=== PATIENT | female | born 1950 | race Caucasian/White ===

== ENCOUNTER 2017-03-17 12:15 | Emergency (ER) | payer BC ==
[~2017-03-17] VITALS: Ht 172.7 cm; Wt 61.6 kg
[2017-03-17 12:24] VITALS: TEMP 36.6; Ht 172.7 cm; Wt 61.6 kg
[2017-03-17] MEDS ORDERED: ASPIRIN 324 MG CHEW PO STA (12:39)
[2017-03-17] MEDS ORDERED: PANTOprazole SOD 40 MG TAB PO STA (12:39)
[2017-03-17] MEDS ORDERED: SODIUM CHLORIDE 0.9% 1000ML 1,000 ML IV STA (12:39)
[2017-03-17] MEDS ORDERED: ONDANSETRON INJ 2 MG/ML 2 ML VIAL IV STA (12:39)
[2017-03-17] MEDS ORDERED: ALUMINUM/MAGNESIUM SUSP 30 ML UDC PO STA (12:39)
--- NOTE | 2017-03-17 12:43 | EMERGENCY ROOM VISIT NOTE ---
History Report prepared by Titi: Faisal Wells Under the Supervision of: Dr. Adrien Heller D.O. First contact with patient: 12:31 Chief Complaint: CHEST PAIN Stated Complaint: CHEST PAIN Nursing Triage Summary: pt reports at 0500 this am had pain in abd and chest area has not felt right since . denies any n/v/sob History of Present Illness The patient is a 66 year old female who presents to the Emergency Room with complaints of chest tightness that began 2 hours ago. She rates the severity of her tightness a 6/10. This morning at 0500, she experienced an odd body pain that woke her up from sleep. It then went away, and she went on with her morning as usual. She had a normal bowel movement and began to eat breakfast. After she had her cereal, she felt abnormally full. She notes that she has been experiencing more frequent belching over the past month. She then began to feel a tightness in her chest. It does not radiate to any other location. She denies any fevers, cough, shortness of breath, abdominal pain, nausea, vomiting, leg pain, leg swelling, abnormal urinary symptoms, diarrhea, or melena. She does not take any medications. She still has her gallbladder. She notes that she was exposed to chemicals secondary to her redoing her hardwood floor. Source of History: patient Onset: 2 hours ago Position: chest Symptom Intensity: 6/10 Quality: other (Tightness) Timing: constant Associated Symptoms: No cough, No SOB, No nausea, No vomiting, No melena, No hematochezia, No diarrhea, No urinary symptoms Note: She is having more frequent belching. Review of Systems See HPI for pertinent positives & negatives. A total of 10 systems reviewed and were otherwise negative. Past Medical & Surgical Medical Problems: (1) retinal history Surgical Problems: (1) History of tonsillectomy Family History Omitted secondary to patient's age. Social History Smoking Status: Never Smoker Smokeless Tobacco Use: No Alcohol Use: occasionally Drug Use: none Marital Status: Housing Status: lives alone Occupation Status: retired Current/Historical Medications Scheduled Omeprazole (Prilosec), 20 MG PO DAILY Allergies Coded Allergies: No Known Allergies (Unverified , NONE, 03/17/17) Physical Exam Vital Signs Date Time Temp Pulse Resp B/P (MAP) Pulse Ox O2 Delivery O2 Flow Rate FiO2 8/19/17 16:07 66 16 123/82 99 03/17/17 13:54 64 133/87 99 03/17/17 12:38 73 03/17/17 12:24 36.6 77 18 137/89 99 Room Air Physical Exam GENERAL: Patient is awake, alert, and in no acute distress. Patient is resting comfortably and showing no signs of anxiety EYES: The conjunctivae are clear. The pupils are round and reactive. EARS, NOSE, MOUTH AND THROAT: The nose is without any evidence of any deformity. Mucous membranes are moist tongue is midline NECK: The neck is nontender and supple. RESPIRATORY: Normal respiratory effort is noted there is no evidence of wheezing rhonchi or rales CARDIOVASCULAR: Regular rate and rhythm noted there no murmurs rubs or gallops normal S1 normal S2 GASTROINTESTINAL: The abdomen is soft. Bowel sounds are present in all quadrants. Abdomen is nontender BACK: No midline tenderness or or step-off noted range of motion in flexion extension as well as rotation no signs of muscle spasm noted MUSCULOSKELETAL/EXTREMITIES: There is no evidence of gross deformity full range of motion is noted in the hips and shoulders SKIN: There is no obvious evidence of any rash. There are no petechiae, pallor or cyanosis noted. NEUROLOGIC: Patient is awake alert and oriented x3 strength is symmetric patellar reflexes are 2+ bilaterally Medical Decision & Procedures ER Provider Diagnostic Interpretation: Radiology results as stated below per my review and radiologist interpretation: CHEST ONE VIEW PORTABLE CLINICAL HISTORY: Abdominal pain. COMPARISON STUDY: No previous studies for comparison. FINDINGS: Lung volumes are normal. There is mild elevation of the left hemidiaphragm. Pulmonary vascularity is normal. No consolidation to suggest pneumonia is present. Cardiomediastinal silhouette is normal. There is an equivocal 7 mm left apical nodule. IMPRESSION: 1. No acute cardiopulmonary findings. 2. Equivocal 7 mm left apical nodule. Nonemergent PA, shallow oblique and apical lordotic views of the chest are recommended. 3. Mild elevation of the left hemidiaphragm. Electronically signed by: Artemio Ross M.D. 03/17/2017 1:01 PM Dictated Date/Time: 03/17/2017 12:59 PM Laboratory Results 03/17/17 12:50 Red Blood Count 4.11, Mean Corpuscular Volume 92.2, Mean Corpuscular Hemoglobin 31.4, Mean Corpuscular Hemoglobin Concent 34.0, Mean Platelet Volume 10.9, Neutrophils (%) (Auto) 72.2, Lymphocytes (%) (Auto) 17.7, Monocytes (%) (Auto) 7.6, Eosinophils (%) (Auto) 1.8, Basophils (%) (Auto) 0.5, Neutrophils # (Auto) 4.08, Lymphocytes # (Auto) 1.00, Monocytes # (Auto) 0.43, Eosinophils # (Auto) 0.10, Basophils # (Auto) 0.03 03/17/17 12:50 Test 03/17/17 12:50 03/17/17 13:45 03/17/17 15:06 White Blood Count 5.65 K/uL (4.8-10.8) Red Blood Count 4.11 M/uL (4.2-5.4) Hemoglobin 12.9 g/dL (12.0-16.0) Hematocrit 37.9 % (37-47) Mean Corpuscular Volume 92.2 fL (80-100) Mean Corpuscular Hemoglobin 31.4 pg (25-34) Mean Corpuscular Hemoglobin Concent 34.0 g/dl (32-36) Platelet Count 219 K/uL (130-400) Mean Platelet Volume 10.9 fL (7.4-10.4) Neutrophils (%) (Auto) 72.2 % Lymphocytes (%) (Auto) 17.7 % Monocytes (%) (Auto) 7.6 % Eosinophils (%) (Auto) 1.8 % Basophils (%) (Auto) 0.5 % Neutrophils # (Auto) 4.08 K/uL (1.4-6.5) Lymphocytes # (Auto) 1.00 K/uL (1.2-3.4) Monocytes # (Auto) 0.43 K/uL (0.11-0.59) Eosinophils # (Auto) 0.10 K/uL (0-0.5) Basophils # (Auto) 0.03 K/uL (0-0.2) RDW Standard Deviation 43.9 fL (36.4-46.3) RDW Coefficient of Variation 12.9 % (11.5-14.5) Immature Granulocyte % (Auto) 0.2 % Immature Granulocyte # (Auto) 0.01 K/uL (0.00-0.02) Prothrombin Time 10.7 SECONDS (9.0-12.0) Prothromb Time International Ratio 1.0 (0.9-1.1) Activated Partial Thromboplast Time 27.1 SECONDS (21.0-31.0) Partial Thromboplastin Ratio 1.0 Anion Gap 5.0 mmol/L (3-11) Est Creatinine Clear Calc Drug Dose 78.1 ml/min Estimated GFR () 104.7 Estimated GFR (Non- 90.3 BUN/Creatinine Ratio 23.1 (10-20) Calcium Level 8.5 mg/dl (8.5-10.1) Total Bilirubin 0.3 mg/dl (0.2-1) Direct Bilirubin < 0.1 mg/dl (0-0.2) Aspartate Amino Transf (AST/SGOT) 19 U/L (15-37) Alanine Aminotransferase (ALT/SGPT) 27 U/L (12-78) Alkaline Phosphatase 85 U/L (45-117) Total Creatine Kinase 102 U/L (26-192) Creatine Kinase MB 6.4 ng/ml (0.5-3.6) Creatine Kinase MB Ratio 6.3 (0-3.0) Total Protein 6.9 gm/dl (6.4-8.2) Albumin 3.5 gm/dl (3.4-5.0) Lipase 152 U/L (73-393) Urine Color YELLOW Urine Appearance CLEAR (CLEAR) Urine pH 6.5 (4.5-7.5) Urine Specific [place] 1.011 (1.000-1.030) Urine Protein NEG (NEG) Urine Glucose (UA) NEG (NEG) Urine Ketones NEG (NEG) Urine Occult Blood NEG (NEG) Urine Nitrite NEG (NEG) Urine Bilirubin NEG (NEG) Urine Urobilinogen NEG (NEG) Urine Leukocyte Esterase NEG (NEG) Troponin I < 0.015 ng/ml (0-0.045) Laboratory results per my review. Medications Administered Medications (Trade) Dose Ordered Sig/Nighat Route Start Time Stop Time Status Last Admin Dose Admin Al Hydroxide/Mg Hydroxide (Maalox Susp) 30 ml NOW STAT PO 03/17/17 12:39 03/17/17 12:41 DC 03/17/17 13:00 30 ML Sodium Chloride 1,000 ml @ 999 mls/hr Q1H1M STAT IV 8/19/17 12:39 03/17/17 13:39 DC 03/17/17 13:03 999 MLS/HR Aspirin (Aspirin Chew) 324 mg NOW STAT PO 03/17/17 12:39 03/17/17 12:42 DC 03/17/17 13:00 324 MG Pantoprazole Sodium (Protonix Tab) 40 mg NOW STAT PO 03/17/17 12:39 03/17/17 12:42 DC 03/17/17 12:59 40 MG ECG Indication: chest pain Rate (beats per minute): 75 Rhythm: normal sinus Findings: Q waves (Anterior), no ectopy Comparison ECG Date: 18 Dec 2001 Change: Q waves are new. 2nd ECG in the ER: NSR 62, poor r-wave noted, no ectopy, no acute STS, no change from previous. ED Course 1231: The patient was evaluated in room C7. A complete history and physical examination were performed. 1239: Ordered Protonix Tab 40 mg PO, Aspirin 324 mg PO, Zofran Inj 4 mg IV, NSS 1,000 ml @ 999 mls/hr IV, Maalox Susp 30 ml PO 1455: I informed the patient that we will do a repeat troponin and ECG at 1500. 1630: Upon reevaluation, the patient is resting. I discussed the results and treatment plan with her. She verbalized agreement of the treatment plan. She was discharged home. Medical Decision Differential diagnosis: Etiologies such as cardiac ischemia, aortic dissection, pulmonary embolism, pneumonia, pneumothorax, musculoskeletal, infections, pericarditis, myocarditis , esophageal rupture, gastrointestinal, as well as others were entertained. Nursing notes reviewed. The patient is a 66-year-old female who presented to the emergency department for an evaluation of substernal chest pain and epigastric pain. The patient had no acute EKG changes and her cardiac biomarkers were negative. She also had repeat EKG and repeat cardiac biomarkers. I discussed the patient's laboratory and radiographic studies with her. I also discussed the limitations of the emergency department workup for chest pain with her. She was treated with aspirin as well as Maalox and proton pump inhibitor in the emergency department. On subsequent reevaluation she was feeling much better. She was encouraged to rest and avoid any strenuous activity. She was also encouraged to call her family doctor to schedule a follow-up appointment as well as possible stress testing. She was also encouraged return to the emergency department immediately if symptoms change worsen or the need arises. Medication Reconcilliation Current Medication List: was personally reviewed by me Blood Pressure Screening Patient's blood pressure: Normal blood pressure Blood pressure disposition: Did not require urgent referral Impression Primary Impression: Substernal chest pain Scribe Attestation The scribe's documentation has been prepared under my direction and personally reviewed by me in its entirety. I confirm that the note above accurately reflects all work, treatment, procedures, and medical decision making performed by me. Departure Information Dispostion Home / Self-Care Prescriptions Omeprazole (Prilosec) 20 Mg Capcr 20 MG PO DAILY, #30 CAP Prov: Adrien Heller, DO 03/17/17 Referrals Isaac Noonan PA-C (PCP) Forms Call Back Authorization, HOME CARE DOCUMENTATION FORM, IMPORTANT VISIT INFORMATION Patient Instructions ED Chest Pain Atypical Unkn Cause, My [facility] Additional Instructions Continue all medications as prescribed. Rest and avoid any strenuous activity. Call your family doctor on Sunday schedule a follow-up appointment. You may require further studies to further evaluate the cause of chest pain including a stress test. Consider using Maalox or Mylanta for symptomatically relief.
--- NOTE | 2017-03-17 13:02 | DIAGNOSTIC IMAGING REPORT ---
CHEST ONE VIEW PORTABLE CLINICAL HISTORY: Abdominal pain. COMPARISON STUDY: No previous studies for comparison. FINDINGS: Lung volumes are normal. There is mild elevation of the left hemidiaphragm. Pulmonary vascularity is normal. No consolidation to suggest pneumonia is present. Cardiomediastinal silhouette is normal. There is an equivocal 7 mm left apical nodule. IMPRESSION: 1. No acute cardiopulmonary findings. 2. Equivocal 7 mm left apical nodule. Nonemergent PA, shallow oblique and apical lordotic views of the chest are recommended. 3. Mild elevation of the left hemidiaphragm. Electronically signed by: Artemio Ross M.D. 03/17/2017 1:01 PM Dictated Date/Time: 03/17/2017 12:59 PM
[2017-03-17 13:07] LABS: BASO % 0.5 %; BASO ABS # 0.03 K/uL (0-0.2); COMPLETE YES; EOS % 1.8 %; HEMATOCRIT 37.9 % (37-47); IG% 0.2 %; LYMPH % 17.7 %; MEAN CELL VOLUME 92.2 fL (80-100); MEAN CORPUSCULAR HEMOGLOBIN 31.4 pg (25-34); MEAN PLATELET VOLUME 10.9 fL (7.4-10.4); MONO % 7.6 %; NEUT % 72.2 %; PLATELET COUNT 219 K/uL (130-400); RED BLOOD COUNT 4.11 M/uL (4.2-5.4); WHITE BLOOD COUNT 5.65 K/uL (4.8-10.8)
[2017-03-17 13:18] LABS: ALT/SGPT 27 U/L (12-78); BLOOD UREA NITROGEN 16 mg/dl (7-18); BUN/CREATININE RATIO 23.1 (10-20); CALCIUM 8.5 mg/dl (8.5-10.1); CARBON DIOXIDE 26 mmol/L (21-32); CHLORIDE 102 mmol/L (98-107); CREATININE 0.67 mg/dl (0.60-1.20); GLUCOSE 109 mg/dl (70-99); POTASSIUM 4.1 mmol/L (3.5-5.1); SODIUM 133 mmol/L (136-145)
[2017-03-17 13:20] LABS: PROTHROMBIN TIME (PATIENT) 10.7 SECONDS (9.0-12.0)
[2017-03-17 13:25] LABS: ALKALINE PHOSPHATASE 85 U/L (45-117); AST/SGOT 19 U/L (15-37); CKMB/CK RATIO 6.3 (0-3.0)
[2017-03-17 14:28] LABS: URINE APPEARANCE CLEAR (CLEAR); URINE BILIRUBIN NEG (NEG); URINE COLOR YELLOW; URINE NITRITE NEG (NEG); URINE PH 6.5 (4.5-7.5); URINE SPECIFIC GRAVITY 1.011 (1.000-1.030); UROBILINOGEN NEG (NEG)
[2017-03-17 14:36] LABS: MANUAL MICROSCOPIC REQUIRED? NO; REVIEW REQ? NO
[2017-03-17] MEDS ORDERED: OMEP20CA59 PO (15:48)
[2017-03-17 16:07] VITALS: BP 123/82; PULSE 66; O2SAT 99
== END 2017-03-17 16:08 | disposition home or self-care (01) ==
LOC: C.EDB 12:16 → C.EDC 16:08
DX: R07.2 Precordial pain (principal); Z79.899 Other long term (current) drug therapy; R10.13 Epigastric pain; Z98.890 Other specified postprocedural states

== ENCOUNTER 2017-03-17 17:06 | Emergency (ER) | payer BC ==
[~2017-03-17] VITALS: Ht 175.3 cm; Wt 60.9 kg
[~2017-03-17 17:06] MED LIST: OMEP20CA59 PO
[2017-03-17 17:10] VITALS: TEMP 36.8; Ht 175.3 cm; Wt 60.9 kg
[2017-03-17] MEDS ORDERED: SODIUM CHLORIDE 0.9% 1000ML 1,000 ML IV STA (17:18)
--- NOTE | 2017-03-17 17:28 | EMERGENCY ROOM VISIT NOTE ---
History Report prepared by Titi: Faisal Wells Under the Supervision of: Dr. Adrien Heller D.O. First contact with patient: 17:17 Chief Complaint: ABDOMINAL PAIN Stated Complaint: ABD PAIN,WAS JUST DISCHARGED History of Present Illness The patient is a 66 year old female who presents to the Emergency Room with complaints of shooting bilateral lower quadrant abdominal pain. She was just discharged from this hospital with a chest pain work up. She does not have any abdominal pain currently. While she was in the car on her way home, she was experiencing this shooting pain. It worsened when she got home, so she came back. She denies any chest pain, shortness of breath, or any other symptoms. She notes that while she was waiting for us to come evaluate her, she felt a "air bubble" on the surface of her abdomen. Source of History: patient Onset: 20 minutes ago Position: abdomen (bilateral LQ) Symptom Intensity: minimal Quality: other (shooting) Timing: resolved Associated Symptoms: No chest pain, No SOB, No back pain Review of Systems See HPI for pertinent positives & negatives. A total of 10 systems reviewed and were otherwise negative. Past Medical & Surgical Medical Problems: (1) retinal history Surgical Problems: (1) History of tonsillectomy Family History Omitted secondary to the patient's age. Social History Smoking Status: Never Smoker Alcohol Use: occasionally Drug Use: none Marital Status: Housing Status: lives alone Occupation Status: retired Current/Historical Medications Scheduled Omeprazole (Prilosec), 20 MG PO DAILY Allergies Coded Allergies: No Known Allergies (Unverified , NONE, 03/17/17) Physical Exam Vital Signs Date Time Temp Pulse Resp B/P (MAP) Pulse Ox O2 Delivery O2 Flow Rate FiO2 03/17/17 18:58 72 16 115/72 98 03/17/17 18:25 73 03/17/17 17:10 36.8 81 16 134/92 98 Room Air Physical Exam GENERAL: Patient is awake, alert, and in no acute distress. Patient is resting comfortably and showing no signs of anxiety EYES: The conjunctivae are clear. The pupils are round and reactive. EARS, NOSE, MOUTH AND THROAT: The nose is without any evidence of any deformity. Mucous membranes are moist tongue is midline NECK: The neck is nontender and supple. RESPIRATORY: Normal respiratory effort is noted there is no evidence of wheezing rhonchi or rales CARDIOVASCULAR: Regular rate and rhythm noted there no murmurs rubs or gallops normal S1 normal S2 GASTROINTESTINAL: The abdomen is soft. Bowel sounds are present in all quadrants. Abdomen is nontender. No guarding or rigidity. No hernia appreciated. BACK: No midline tenderness or or step-off noted range of motion in flexion extension as well as rotation no signs of muscle spasm noted MUSCULOSKELETAL/EXTREMITIES: There is no evidence of gross deformity full range of motion is noted in the hips and shoulders SKIN: There is no obvious evidence of any rash. There are no petechiae, pallor or cyanosis noted. NEUROLOGIC: Patient is awake alert and oriented x3. Medical Decision & Procedures ER Provider Diagnostic Interpretation: Radiology results as stated below per my review and radiologist interpretation: CT OF THE ABDOMEN AND PELVIS WITH CONTRAST CLINICAL HISTORY: Upper abdominal pain. COMPARISON STUDY: None. TECHNIQUE: Following IV administration of 93 mL of Optiray-320, axial images of the abdomen and pelvis were obtained from the lung bases to the proximal femurs. Images were reviewed in the axial, sagittal, and coronal planes. IV contrast was administered without complication. A dose lowering technique was utilized adhering to the principles of ALARA. CT DOSE: 234.26 mGy.cm FINDINGS: Visualized portions of the lower chest demonstrate a few small nodules, including a 4 mm left lower lobe nodule shown image 177 and a 4 mm subpleural right lower lobe nodule shown image 9 of 77. A 2.4 cm water attenuation right cardiophrenic angle lesion represents a pericardial cyst. A 1 cm hypodense splenic lesion is likely benign. The liver, right adrenal gland, kidneys and pancreas are unremarkable. The left adrenal gland is not well visualized on this exam. There is no biliary or pancreatic ductal dilatation. Evaluation of the abdomen and pelvis is difficult given a paucity of intra-abdominal fat and lack of oral contrast. There is no evidence for a bowel obstruction. No pneumatosis, free air or portal venous gas is present. The appendix is normal. There is no evidence for a bowel obstruction. There is no lymphadenopathy. No suspicious osseous lesions are identified. IMPRESSION: 1. No acute process within the abdomen or pelvis although evaluation is difficult given a paucity of intra-abdominal fat and lack of oral contrast. Normal appendix. 2. Two tiny subpleural nodules within visualized portions of the lower lungs. These are likely benign. A follow up chest CT in 6 months to ensure stability is recommended. 3. No bowel obstruction. Electronically signed by: Artemio Ross M.D. 03/17/2017 6:34 PM Dictated Date/Time: 03/17/2017 6:24 PM Laboratory Results 03/17/17 17:38 Red Blood Count 4.20, Mean Corpuscular Volume 92.4, Mean Corpuscular Hemoglobin 30.0, Mean Corpuscular Hemoglobin Concent 32.5, Mean Platelet Volume 10.9, Neutrophils (%) (Auto) 64.0, Lymphocytes (%) (Auto) 25.9, Monocytes (%) (Auto) 7.3, Eosinophils (%) (Auto) 2.0, Basophils (%) (Auto) 0.6, Neutrophils # (Auto) 3.44, Lymphocytes # (Auto) 1.39, Monocytes # (Auto) 0.39, Eosinophils # (Auto) 0.11, Basophils # (Auto) 0.03 03/17/17 17:38 Test 03/17/17 17:38 03/17/17 18:12 White Blood Count 5.37 K/uL (4.8-10.8) Red Blood Count 4.20 M/uL (4.2-5.4) Hemoglobin 12.6 g/dL (12.0-16.0) Hematocrit 38.8 % (37-47) Mean Corpuscular Volume 92.4 fL (80-100) Mean Corpuscular Hemoglobin 30.0 pg (25-34) Mean Corpuscular Hemoglobin Concent 32.5 g/dl (32-36) Platelet Count 232 K/uL (130-400) Mean Platelet Volume 10.9 fL (7.4-10.4) Neutrophils (%) (Auto) 64.0 % Lymphocytes (%) (Auto) 25.9 % Monocytes (%) (Auto) 7.3 % Eosinophils (%) (Auto) 2.0 % Basophils (%) (Auto) 0.6 % Neutrophils # (Auto) 3.44 K/uL (1.4-6.5) Lymphocytes # (Auto) 1.39 K/uL (1.2-3.4) Monocytes # (Auto) 0.39 K/uL (0.11-0.59) Eosinophils # (Auto) 0.11 K/uL (0-0.5) Basophils # (Auto) 0.03 K/uL (0-0.2) RDW Standard Deviation 43.4 fL (36.4-46.3) RDW Coefficient of Variation 12.9 % (11.5-14.5) Immature Granulocyte % (Auto) 0.2 % Immature Granulocyte # (Auto) 0.01 K/uL (0.00-0.02) Anion Gap 6.0 mmol/L (3-11) Est Creatinine Clear Calc Drug Dose 77.3 ml/min Estimated GFR () 104.7 Estimated GFR (Non- 90.3 BUN/Creatinine Ratio 18.2 (10-20) Calcium Level 8.5 mg/dl (8.5-10.1) Total Bilirubin 0.3 mg/dl (0.2-1) Direct Bilirubin < 0.1 mg/dl (0-0.2) Aspartate Amino Transf (AST/SGOT) 20 U/L (15-37) Alanine Aminotransferase (ALT/SGPT) 25 U/L (12-78) Alkaline Phosphatase 78 U/L (45-117) Troponin I < 0.015 ng/ml (0-0.045) Total Protein 6.8 gm/dl (6.4-8.2) Albumin 3.6 gm/dl (3.4-5.0) Amylase Level 66 U/L (25-115) Lipase 153 U/L (73-393) Bedside Lactic Acid Venous 1.22 mmol/L (0.90-1.70) Laboratory results per my review. Medications Administered Medications (Trade) Dose Ordered Sig/Nighat Route Start Time Stop Time Status Last Admin Dose Admin Sodium Chloride 1,000 ml @ 999 mls/hr Q1H1M STAT IV 03/17/17 17:18 03/17/17 18:18 DC 03/17/17 18:01 999 MLS/HR ECG Rate (beats per minute): 72 Rhythm: normal sinus Findings: no ectopy, other (No acute STS) Comparison ECG Date: ECG earlier today Change: no significant change ED Course 7: The patient was evaluated in room A12. A complete history and physical examination were performed. 1718: Ordered NSS 1,000 ml @ 999 mls/hr IV 1847: Upon reevaluation, the patient is resting. I discussed the results and treatment plan with her. She verbalized agreement of the treatment plan. She was discharged home. Medical Decision Differential diagnosis: Etiologies such as appendicitis, diverticulitis, PUD, biliary pathology, UTI, pancreatitis, obstruction, mesenteric ischemia, aortic pathology, infections, inflammatory bowel disease, renal colic, as well as others were entertained. Nursing notes reviewed. The patient's recent visit was also reviewed. The patient is a 66-year-old female who presented to the emergency department for abdominal pain. The patient was evaluated by myself earlier for substernal chest pain. At that time her cardiac workup was negative. She returns now for periumbilical and epigastric abdominal discomfort. The patient was treated with IV fluids in the emergency department. On physical exam she did not have any acute surgical abdomen and her pain had resolved. Because the patient was very concerned CT the abdomen and pelvis and repeat laboratory studies were obtained. I discussed the patient's laboratory and radiographic studies with her. She was encouraged to follow-up with her family doctor for further evaluation continue all medications as prescribed. Otherwise she was encouraged to return the emergency department immediately if symptoms change worsen or the need arises. I did recommend she continue the proton pump inhibitor as well as Maalox or Mylanta for symptomatic relief. Medication Reconcilliation Current Medication List: was personally reviewed by me Blood Pressure Screening Patient's blood pressure: Normal blood pressure Blood pressure disposition: Did not require urgent referral Impression Primary Impression: Epigastric abdominal pain Scribe Attestation The scribe's documentation has been prepared under my direction and personally reviewed by me in its entirety. I confirm that the note above accurately reflects all work, treatment, procedures, and medical decision making performed by me. Departure Information Dispostion Home / Self-Care Referrals Isaac Noonan PA-C (PCP) Forms HOME CARE DOCUMENTATION FORM, IMPORTANT VISIT INFORMATION Patient Instructions ED Abdominal Pain Unkn Cause, My [facility] Additional Instructions Call your family to schedule a follow-up appointment. Rest and avoid any strenuous activity. Continue using Maalox or Mylanta as directed for symptomatically.
[2017-03-17] MEDS ORDERED: OPTIRAY 320 IV PRN (17:30)
[2017-03-17 17:49] LABS: BASO % 0.6 %; BASO ABS # 0.03 K/uL (0-0.2); COMPLETE YES; HEMATOCRIT 38.8 % (37-47); IG% 0.2 %; LYMPH % 25.9 %; LYMPH ABS # 1.39 K/uL (1.2-3.4); MEAN CELL VOLUME 92.4 fL (80-100); MEAN CORPUSCULAR HGB CONC 32.5 g/dl (32-36); MEAN PLATELET VOLUME 10.9 fL (7.4-10.4); MONO % 7.3 %; PLATELET COUNT 232 K/uL (130-400); WHITE BLOOD COUNT 5.37 K/uL (4.8-10.8)
[2017-03-17 18:06] LABS: ALT/SGPT 25 U/L (12-78); AMYLASE 66 U/L (25-115); BLOOD UREA NITROGEN 12 mg/dl (7-18); BUN/CREATININE RATIO 18.2 (10-20); CALCIUM 8.5 mg/dl (8.5-10.1); CARBON DIOXIDE 26 mmol/L (21-32); CHLORIDE 103 mmol/L (98-107); CREATININE 0.67 mg/dl (0.60-1.20); GLUCOSE 93 mg/dl (70-99); POTASSIUM 3.8 mmol/L (3.5-5.1); SODIUM 135 mmol/L (136-145)
[2017-03-17 18:11] LABS: ALKALINE PHOSPHATASE 78 U/L (45-117); AST/SGOT 20 U/L (15-37)
--- NOTE | 2017-03-17 18:35 | DIAGNOSTIC IMAGING REPORT ---
CT OF THE ABDOMEN AND PELVIS WITH CONTRAST CLINICAL HISTORY: Upper abdominal pain. COMPARISON STUDY: None. TECHNIQUE: Following IV administration of 93 mL of Optiray-320, axial images of the abdomen and pelvis were obtained from the lung bases to the proximal femurs. Images were reviewed in the axial, sagittal, and coronal planes. IV contrast was administered without complication. A dose lowering technique was utilized adhering to the principles of ALARA. CT DOSE: 234.26 mGy.cm FINDINGS: Visualized portions of the lower chest demonstrate a few small nodules, including a 4 mm left lower lobe nodule shown image 177 and a 4 mm subpleural right lower lobe nodule shown image 9 of 77. A 2.4 cm water attenuation right cardiophrenic angle lesion represents a pericardial cyst. A 1 cm hypodense splenic lesion is likely benign. The liver, right adrenal gland, kidneys and pancreas are unremarkable. The left adrenal gland is not well visualized on this exam. There is no biliary or pancreatic ductal dilatation. Evaluation of the abdomen and pelvis is difficult given a paucity of intra-abdominal fat and lack of oral contrast. There is no evidence for a bowel obstruction. No pneumatosis, free air or portal venous gas is present. The appendix is normal. There is no evidence for a bowel obstruction. There is no lymphadenopathy. No suspicious osseous lesions are identified. IMPRESSION: 1. No acute process within the abdomen or pelvis although evaluation is difficult given a paucity of intra-abdominal fat and lack of oral contrast. Normal appendix. 2. Two tiny subpleural nodules within visualized portions of the lower lungs. These are likely benign. A follow up chest CT in 6 months to ensure stability is recommended. 3. No bowel obstruction. Electronically signed by: Artemio Ross M.D. 03/17/2017 6:34 PM Dictated Date/Time: 03/17/2017 6:24 PM
[2017-03-17 18:58] VITALS: BP 115/72; PULSE 72; O2SAT 98
== END 2017-03-17 18:59 | disposition home or self-care (01) ==
LOC: C.EDB 17:07 → C.EDA 18:59
DX: R10.13 Epigastric pain (principal); Z98.890 Other specified postprocedural states

== ENCOUNTER → 2017-05-21 | Day surgery (SDC) | payer BC ==
[2017-05-16 10:42] VITALS: Ht 170.2 cm; Wt 60.5 kg
[~2017-05-21] VITALS: Ht 170.2 cm; Wt 60.5 kg
[~2017-05-21] MED LIST changes: +LIDOCAINE HCL 2% 2 ML VIAL (20MG/ML) ONE; -OMEP20CA59 PO; +PRLSR20 PO; +PROPOFOL IV EMULSION 10 MG/ML 20 ML VIAL IV ONE; +SODIUM CHLORIDE 0.9% 500ML 500 ML IV ONE
--- NOTE | 2017-05-21 10:12 | Endo History and Physical ---
History & Physical Date of Service: May 21, 2017. Chief Complaint: Screening Referring Physician: Dr Isaac Noonan, NANCY Lind History of Present Illness 67 yo CF who presents for screening colonoscopy. Past Surgical History Hx Cardiac Surgery: No Hx Internal Defibrillator: No Hx Pacemaker: No Hx Abdominal Surgery: No Hx of Implantable Prosthesis: No Hx Post-Op Nausea and Vomiting: No Hx Cancer Surgery: No Hx Thoracic Surgery: No Hx Orthopedic: Yes (WRIST GANGLION CYST REMOVAL, THUMB LIGAMENT/TENDON REPAIR) Hx Urinary Tract Surgery: No Family History None Social History Smoking Status: Never Smoker Hx Substance Use: No Hx Alcohol Use: Yes (OCCASIONALLY) Allergies Coded Allergies: NO KNOWN DRUG ALLERGIES (Verified Allergy, Unknown, ., 05/16/17) Uncoded Allergies: HAY FEVER (Allergy, Unknown, ., 05/16/17) Current Medications Reported Home Medications Medications Dose Route/Sig Max Daily Dose Days Date Category Dose Instructions Prilosec (Omeprazole) 20 Mg Capcr 20 Mg PO Q2D 05/16/17 Reported WEANING OFF PER GI INSTRUCTIONS. Vital Signs Weight (Kilograms): 60.45 Height (Feet): 5 Height (Inches): 7 Date Time Temp Pulse Resp B/P (MAP) Pulse Ox O2 Delivery O2 Flow Rate FiO2 05/21/17 10:03 36.9 73 16 127/74 (91) 97 Room Air Physical Exam General Appearance: WD/WN, no apparent distress Respiratory/Chest: Auscultation: breath sounds normal Cardiovascular: Heart Auscultation: RRR Abdomen: Bowel Sounds: normal Inspection & Palpation: soft, non-distended, no tenderness, guarding & rebound Assessment and Plan Assessment: 67 yo CF who presents for screening colonoscopy. Plan: Proceed with colonoscopy.
--- NOTE | 2017-05-21 11:15 | GI REPORT ---
Procedure Date: 05/21/2017 10:28 AM Procedure: Colonoscopy Indications: Screening for colorectal malignant neoplasm Medicines: Monitored Anesthesia Care Complications: No immediate complications. Estimated Blood Loss: Estimated blood loss: none. Procedure: Pre-Anesthesia Assessment: - Prior to the procedure, a History and Physical was performed, and patient medications and allergies were reviewed. The patient's tolerance of previous anesthesia was also reviewed. The risks and benefits of the procedure and the sedation options and risks were discussed with the patient. All questions were answered, and informed consent was obtained. Prior Anticoagulants: The patient has taken no previous anticoagulant or antiplatelet agents. ASA Grade Assessment: II - A patient with mild systemic disease. After reviewing the risks and benefits, the patient was deemed in satisfactory condition to undergo the procedure. After I obtained informed consent, the scope was passed under direct vision. Throughout the procedure, the patient's blood pressure, pulse, and oxygen saturations were monitored continuously. The scope was introduced through the anus and advanced to the terminal ileum. The colonoscopy was performed without difficulty. The patient tolerated the procedure well. The quality of the bowel preparation was good. The terminal ileum, ileocecal valve, appendiceal orifice, and rectum were photographed. Findings: Multiple small-mouthed diverticula were found in the sigmoid colon. Non-bleeding internal hemorrhoids were found during retroflexion. The hemorrhoids were small. Impression: - Diverticulosis in the sigmoid colon. - Non-bleeding internal hemorrhoids. - No specimens collected. Recommendation: - Resume previous diet. - Continue present medications. - Repeat colonoscopy in 10 years for surveillance. - Return to primary care physician as previously scheduled. Joshua Cruz, 05/21/2017 11:15:23 AM This report has been signed electronically. Note Initiated On: 05/21/2017 10:28 AM I attest to the content of the Intraoperative Record and orders documented therein, exceptions below
--- NOTE | 2017-05-21 11:18 | Discharge Instructions ---
Endoscopy Patient Instructions Date / Procedure(s) Performed May 21, 2017. Colonoscopy Allergy Information Coded Allergies: NO KNOWN DRUG ALLERGIES (Verified Allergy, Unknown, ., 05/16/17) Uncoded Allergies: HAY FEVER (Allergy, Unknown, ., 05/16/17) Discharge Date / Findings May 21, 2017. Diverticulosis Internal hemorrhoids Medication Instructions OK to resume all medications today as prescribed Reported Home Medications Medications Dose Route/Sig Max Daily Dose Days Date Category Dose Instructions Prilosec (Omeprazole) 20 Mg Capcr 20 Mg PO Q2D 05/16/17 Reported WEANING OFF PER GI INSTRUCTIONS. Provider Instructions Activity Restrictions - No exercising or heavy lifting for 24 hours. - Do not drink alcohol the day of the procedure. - Do not drive a car or operate machinery until the day after the procedure. - Do not make any important decisions or sign important papers in 24 hours after the procedure. Following Day: - Return to full activity which may include returning to work/school. Diet Start your diet with liquids and light foods (jello, soup, juice, toast). Then eat your usual diet if not nauseated. Treatment For Common After Affects For mild abdominal pain, bloating, or excessive gas: - Rest - Eat lightly - Lie on right side Follow-Up Information Follow-up with Dr Isaac Noonan, NANCY Lind as scheduled Anesthesia Information What You Should Know You have had a procedure that required some medicine to reduce anxiety and discomfort. This treatment is called moderate sedation. After receiving the treatment, you may be sleepy, but you will be able to breathe on your own. The effects of the treatment may last for several hours. Follow these instructions along with Activity/Diet recommendations noted above: * Do NOT do anything where dizziness or clumsiness would be dangerous. * Rest quietly at home today, then you can be up and about tomorrow. * Have a responsible person stay with you the rest of today. * You may have had an I.V. today. If so, you may take the dressing off later today. Recommendations Call your doctor if: * Trouble breathing * Continuous vomiting for more than 24 hours * Temperature above 101 degrees * Severe abdominal pain or bloating * Pain not relieved by pain medicine ordered * There is increased drainage or redness from any incision * A large amount of rectal bleeding greater than 2-3 tablespoons. (If you had a polyp/s removed or have hemorrhoids, a small amount of blood - from the rectum is to be expected.) * You have any unanswered questions or concerns. IN THE EVENT OF A SERIOUS EMERGENCY, GO TO THE NEAREST EMERGENCY ROOM Your discharge instructions were prepared by provider Joshua Cruz. Patient Instructions Signature Page Ashley Bertrand Patient (or Guardian) Signature/Date: I have read and understand the instructions given to me by my caregivers. Caregiver/RN/Doctor Signature/Date: The above-named patient and/or guardian has received patient instructions on this date. + Original Patient Signature Page (only) stays with chart. Please make copy for patient.
[2017-05-21 11:40] VITALS: BP 106/68; PULSE 65; O2SAT 100
--- NOTE | 2017-05-21 11:46 | Anesthesiology Progress Note ---
Anesthesia Post Op Note Date & Time May 21, 2017 at 11:46 Vital Signs Pain Intensity: 0 Vital Signs Past 12 Hours Date Time Temp Pulse Resp B/P (MAP) Pulse Ox O2 Delivery O2 Flow Rate FiO2 05/21/17 11:40 65 18 106/68 (81) 100 Room Air 05/21/17 11:25 70 16 111/93 (99) 100 Room Air 05/21/17 11:10 64 16 98/56 (70) 100 Room Air 05/21/17 10:03 36.9 73 16 127/74 (91) 97 Room Air Notes Mental Status: alert / awake / arousable, participated in evaluation Pt Amnestic to Procedure: Yes Nausea / Vomiting: adequately controlled Pain: adequately controlled Airway Patency, RR, SpO2: stable & adequate BP & HR: stable & adequate Hydration State: stable & adequate Anesthetic Complications: no major complications apparent
== END | disposition home or self-care (01) ==
LOC: C.GI 09:20
PROVIDERS: ATTEND Internal Medicine
DX: Z12.11 Encounter for screening for malignant neoplasm of colon (principal); K57.30 Diverticulosis of large intestine without perforation or abscess without bleeding; M19.90 Unspecified osteoarthritis, unspecified site; K64.8 Other hemorrhoids; Z68.21 Body mass index [BMI] 21.0-21.9, adult; Z98.890 Other specified postprocedural states; Z86.718 Personal history of other venous thrombosis and embolism

== ENCOUNTER → 2017-08-30 | Outpatient (CLI) | payer BC ==
[~2017-08-30] MED LIST changes: -LIDOCAINE HCL 2% 2 ML VIAL (20MG/ML) ONE; +OPTIRAY 320 IV PRN; -PROPOFOL IV EMULSION 10 MG/ML 20 ML VIAL IV ONE; -SODIUM CHLORIDE 0.9% 500ML 500 ML IV ONE
--- NOTE | 2017-08-30 18:05 | DIAGNOSTIC IMAGING REPORT ---
ABDOMEN AND PELVIS CT WITH IV AND ORAL CONTRAST CT DOSE: 378.97 mGycm HISTORY: Follow-up ovarian cyst. R91.1 Solitary pulmonary nodule TECHNIQUE: Multiaxial CT images of the abdomen and pelvis were performed following the use of intravenous and oral contrast. A dose lowering technique was utilized adhering to the principles of ALARA. COMPARISON STUDY: Abdomen and pelvis CT 03/17/2017. FINDINGS: Stable 4 mm nodule within the left lower lobe on image 26. There is also a 4 mm nodule within the left lower lobe on image 1 which was not included on the prior study. Stable 4 mm subpleural nodule within the right lower lobe on image 65. There is a 3 mm nodule within the right lower lobe on image 24. Stable 2.4 cm right pericardial cyst. No suspicious lytic or blastic osseous lesions. A stable 8 mm hypodense lesion within the spleen. This is too small to characterize but is likely benign. A stable 4 mm hypodense lesion within the right hepatic lobe inferiorly. The gallbladder, pancreas, kidneys, and adrenal glands are unremarkable. Normal bladder. The uterus and bilateral adnexa are within normal limits. No large ovarian cysts identified. No retroperitoneal lymphadenopathy. Colonic diverticulosis. No bowel wall thickening or obstruction. Normal appendix. IMPRESSION: 1. No bowel wall thickening or obstruction. 2. Colonic diverticulosis. 3. A few subcentimeter nodules within the lung bases measuring up to 4 mm. The previous 2 seen on the prior study remain stable. There are 2 additional nodules which are not included on the prior examination. Please refer to the chart below for recommended follow-up. Please refer to below summary of Fleischner criteria recommendations for follow-up of incidental CT nodules (aMrty Barakat, Guidelines for management of small pulmonary nodules detected on CT scans: A statement from the Fleischner Society, Radiology 237: [id number].) SOLID NODULES Solitary nodule size: <6 mm * Low risk patients: no follow-up needed * high risk patients: optional CT at 12 months Solitary nodule size: 6-8 mm * Low risk patients: follow-up at 6-12 months, then consider further follow-up at 18-24 months * high risk patients: initial follow-up CT at 6-12 months and then at 18-24 months if no change Solitary nodule size: >8 mm * either low or high risk patients - consider follow-up CT at 3 months, and/or CT-PET, and/or biopsy Multiple nodules size: <6 mm * Low risk patients: no routine follow-up * high risk patients: optional CT at 12 months Multiple nodules size: 6-8 mm * Low risk patients: follow-up at 3-6 months, then consider further follow-up at 18-24 months * high risk patients: follow-up at 3-6 months, then at 18-24 months if no change Multiple nodules size: >8 mm * Low risk patients: follow-up at 3-6 months, then consider further follow-up at 18-24 months * high risk patients: follow-up at 3-6 months, then at 18-24 months if no change Note: newly detected indeterminate nodule in persons 35 years of age or older. * Low risk patients: minimal or absent history of smoking and/or other known risk factors * high risk patients: history of smoking or of other known risk factors (e.g. first degree relative with lung cancer, or exposure to asbestos, radon, uranium) * if a nodule up to 8 mm is partly solid or is ground glass further follow-up is required after 24 months to exclude possible slow growing adenocarcinoma (MIKE) SUBSOLID NODULES Solitary pure ground-glass nodule * nodule size <6 mm - no CT follow-up required * nodule size >=6 mm - follow-up CT at 6-12 months, then every 2 years until 5 years Solitary part-solid nodule * nodule size <6 mm - no CT follow-up required * nodule size >=6 mm - follow-up CT at 3-6 months. If unchanged, and solid component remains <6 mm, then annual follow-up for 5 years Multiple subsolid nodules * nodule size <6 mm - follow-up CT at 3-6 months, consider further follow-up at 2 and 4 years if stable * nodule size >=6 mm - follow-up CT at 3-6 months, subsequent management based on the most suspicious nodule(s) Electronically signed by: Enoc Anna M.D. 08/30/2017 6:04 PM Dictated Date/Time: 08/30/2017 5:53 PM
== END | disposition home or self-care (01) ==
LOC: C.CTS 12:41
PROVIDERS: ATTEND Physician Assistant
DX: K57.30 Diverticulosis of large intestine without perforation or abscess without bleeding (principal); R91.8 Other nonspecific abnormal finding of lung field

== ENCOUNTER → 2017-09-06 | Outpatient (CLI) | payer BC ==
[~2017-09-06] MED LIST changes: -OPTIRAY 320 IV PRN
--- NOTE | 2017-09-06 12:41 | DIAGNOSTIC IMAGING REPORT ---
CHEST 2 VIEWS ROUTINE CLINICAL HISTORY: R91.1 Solitary pulmonary [id number] COMPARISON STUDY: 03/17/2017 FINDINGS: The chest has an emphysematous configuration. The cardiac and mediastinal contours remain stable. There is no failure. There is no focal pulmonary consolidation. No pleural effusions are visualized. The previously queried left apical pulmonary nodule is not visualized on the current study.[ IMPRESSION: No active disease in the chest. Electronically signed by: Junior Chang M.D. 09/06/2017 12:39 PM Dictated Date/Time: 09/06/2017 12:38 PM
== END | disposition home or self-care (01) ==
LOC: C.RAD 12:07
PROVIDERS: ATTEND Physician Assistant
DX: R91.1 Solitary pulmonary nodule (principal)

== ENCOUNTER → 2017-12-05 | Outpatient (CLI) | payer BC ==
[2017-12-05 12:18] LABS: BLOOD UREA NITROGEN 18 mg/dl (7-18); CALCIUM 8.7 mg/dl (8.5-10.1); CARBON DIOXIDE 27 mmol/L (21-32); CREATININE 0.77 mg/dl (0.60-1.20); GLUCOSE 89 mg/dl (70-99); SODIUM 138 mmol/L (136-145)
[2017-12-05 12:22] LABS: CHOLESTEROL 200 mg/dl (0-200); LDL CHOLESTEROL CALCULATED 115 mg/dl
[2017-12-05 13:08] LABS: HEP C IGG 13 YRS+OLDER_RFLX NEG (NEG)
== END | disposition home or self-care (01) ==
LOC: C.LAB 10:33
PROVIDERS: ATTEND Nurse Practitioner Adult Health
DX: Z20.2 Contact with and (suspected) exposure to infections with a predominantly sexual mode of transmission (principal); Z13.220 Encounter for screening for lipoid disorders; Z13.1 Encounter for screening for diabetes mellitus